=== PATIENT | female | born 1940 | race Caucasian/White ===

== ENCOUNTER 2024-05-14 11:39 | Day surgery (SDC) | payer MEDICARE, OTHER, SELFPAY ==
[2024-05-14] VITALS (7 sets, daily range): BP systolic 108–144; BP diastolic 60–67; PULSE 69–79; RESP 16–18; TEMP 35.8–36.4; O2SAT 95–99; BMI 32.8
--- NOTE | 2024-05-14 13:10 | HP.PCM_ITS ---
History and Physical Date of Admission: 05/14/24 FERMIN SILVA, is a 84 F who presents to the office today for establishment with [facility]. She is here today for evaluation of dysphagia to solid foods. This has been going on for a year now. Her tells me she will have food get stuck and she will have to take a break from eating until it passes. She is unsure if she has had an EGD before. She denies abdominal pain, heartburn, diarrhea, constipation or melena. ROS Const Constitutional: Positive for frequent falls; No fatigue, fever(s) or weight change ENT ENT: Positive for difficulty swallowing Gastro GI: Positive for difficulty swallowing; No abdominal pain, belching, bloating, change in bowel habits, change in stool character, coffee ground emesis, constipation, cramping, diarrhea, heartburn, feeling full early, excessive flatus, incontinent of stools, Vomiting blood/hematemesis, Blood in stool, loose stools, Black,tarry stools, nausea/dyspepsia, pain with swallowing, vomiting or other Musc Musculoskeletal: Positive for Arthritis; No joint pain Skin Skin: No yellowing of the eye or itchy eyes Neuro Neurology: Positive for frequent falls Psych Psychiatric: No anxiety and No depression Endo Endocrine: No fatigue or weight change Aller/Imm Allergy/Immunologic: No itchy eyes Jesus/Lymp Hematologic/Lymphatic: No easy bleeding or easy bruising Exam Const General: cooperative and comfortable Nutritional Appearance: average body habitus and well nourished [facility] Head: normal to inspection Ears: hearing grossly normal bilaterally Nose: external nose normal Face and sinus: normal facial exam Eyes General: appearance normal, both eyes and all related structures Neck Neck: normal visual inspection Chest Chest palpation & inspection: normal inspection of the chest Resp Effort & Inspection: normal respiratory effort Cardio Palpation: normal PMI Rate: regular rate Rhythm: regular rhythm GI Inspection: normal to inspection Auscultation: normal bowel sounds Percussion: normal to percussion Palpation: no hepatosplenomegaly Skin General: no rashes or lesions noted Neuro General: patient alert Extrem General: normal to inspection Psych Affect: normal affect Assessment and Plan Assessment and Plan (1) Dysphagia: Status: Inactive Plan: Pt is an 84 yo female here today for evaluation of dysphagia. She has had dysphagia to solid foods for about 1 year now. Her is with her today and answers most questions for her. She has episodes of food getting stuck in her esophagus and will have to wait until its passed to continue eating. She is unsure if she has had an EGD before but is agreeable to having one now. She denies all other GI symptoms. Differential diagnosis includes GERD, motility problem, stenosis or neurologic problem. -EGD with possible dilation -f/u in 6 months I have examined the patient and the H&P has been reviewed. There are no clinical changes since date of exam.
--- NOTE | 2024-05-14 13:21 | PCM.PRE.AN2 ---
ASA Classification* ASA Classification ASA Classification: 2 Assessment & Plan Anesthesia* Anesthesia Assessment Anesthesia Assessment: Discussed sedation and/or anesthesia options, risks, benefits, and alternatives with patient/parents/legal guardian/POA. Questions invited. The patient/parents/legal guardian/POA seems to understand and agrees to proceed with anesthesia plan. Reviewed the physical assessment, medical history, allergy history and patient home medications list prior to surgery/procedure/anesthetic and documented any changes. Performed airway and anesthesia risk assessments. Anesthesia Type Anesthesia Type: MAC History Source History Obtained from:: Patient and Chart Anesthesia Focused Assessment* Temperature: 97.5 F Pulse Rate: 79 Blood Pressure: 144/67 Respiratory Rate: 18 Pulse Ox: 99 Oxygen Delivery Method: Room Air Airway Assessment Mouth opens: >3 cm Mallampati Score: IV Teeth Condition: Intact and Caps/Crowns (Patient has several crowns. 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 When Was Last Pacemaker Check QUESTION #4 FULL TEXT: You/Your Family Experience fever (hyperthermia) with Anesthesia Last Oral Intake Last Oral intake: Last Oral Intake NPO since 23:30 05/14/24 12:33 Meds taken in AM with sips of water? Meds patient instructed to take am of surgery Any additional information?: Yes Meds taken in AM with sips of water?: Yes PONV PONV - keyboard instrument tuner: PONV - keyboard instrument tuner Female Yes 05/12/24 15:02 HX of Motion Sickness No 05/12/24 15:02 HX of N/V After Surgery No 05/12/24 15:02 Non-Smoker Yes 05/12/24 15:02 Duration of Surgery greater No 05/12/24 15:02 than 60 minutes Number of Risk Factors 2 05/12/24 15:02 PONV Score Moderate Risk 05/12/24 15:02 Height & Weight Height & Weight: Anesthesia: Height & Weight Height 5 ft 05/14/24 12:33 Weight: 76.2 kg 05/14/24 12:33 Body Mass Index (BMI) 32.8 05/14/24 12:33 Respiratory Assessment Respiratory Assessment - keyboard instrument tuner: Respiratory Tract Infection Hx - keyboard instrument tuner Hx Respiratory Tract Infection No 05/12/24 15:02 STOP Sleep Apnea STOP Sleep Apnea - keyboard instrument tuner: STOP Sleep Apnea - keyboard instrument tuner Hx Hypertension No 05/12/24 15:02 Hx Sleep Apnea No 05/12/24 15:02 CPAP BIPAP Do you snore loudly (louder No 05/12/24 15:02 than talking or can be heard Do you often feel tired/ No 05/12/24 15:02 fatigued/ sleepy during daytime? Has anyone observed you stop No 05/12/24 15:02 breathing during sleep? STOP Results Negative 05/12/24 15:02 QUESTION #5 FULL TEXT : Do you snore loudly (louder than talking or can be heard through closed doors)? Tobacco Use History Tobacco Use History - keyboard instrument tuner: Tobacco Use History - keyboard instrument tuner Tobacco Use Smoking Status Never smoker 05/12/24 15:02 Hx Tobacco Use No 05/12/24 15:02 Years Smoking Packs Smoked per Day Smoking Cessation Date was within the last 15 years Hx Smoking Cessation Date Hx Smoking Cessation Counseling Hematologic Medial History Hematologic Hx - keyboard instrument tuner: Hematologic Medical Hx - drencher Hx of Blood Transfusion No 05/12/24 15:02 Hx of Transfusion in last 3 No 05/12/24 15:02 Months Date of Last Transfusion (if within last 3 months) Ever experience any problems No 05/12/24 15:02 with transfusion(s)? Specify any problems Hx of Preganancy in last 3 No 05/12/24 15:02 Months Nurse Filling Out Transfusion VLEHMAN 05/12/24 15:02 & Questions: Date: 05/12/24 05/12/24 15:02 Time: 15:07 05/12/24 15:02 Patient unable to answer at this time (ie. confused, unrespo /Reproduction History /Reproductive History - keyboard instrument tuner: /Reproductive Hx- keyboard instrument tuner Hx Now Gestational Age (in weeks): EDC: Hx Hx Para Hx Section SAB PFSH Medical History Wears hearing aid Wears glasses Dementia Non-smoker Hypertension Home Medications ?Medication ?Instructions ?Recorded ?Last Taken ?Type amlodipine 5 mg tablet 5 mg PO QDAY 04/13/24 05/14/24 History memantine 10 mg tablet 10 mg PO BID 04/13/24 05/13/24 History rivastigmine 9.5 mg/24 hour 1 patch transdermal DAILY 05/12/24 05/14/24 History transdermal patch Allergy/AdvReac Type Severity Reaction Status Date / Time No Known Allergies Allergy Verified 05/14/24 12:32 Surgical History Hx of cholecystectomy Social History Smoking Status: Never smoker Review of Systems (Anesthesia) ROS Narrative System reviewed and no additional complaints, except as documented.
--- NOTE | 2024-05-14 13:30 | EGD_PTH ---
PATHOLOGY RESULTS PATIENT: FERMIN SILVA LOC: EN U#:[id number] AGE/SX: 84/F ROOM: RE05/14/[address]: Dr. Edmond Jones DO : 1940 BED: DIS: 05/14/2024 SPEC #: [id number] RECD: 05/14/24 17:13 STATUS: STEVIE REClover #: [id number] ROHINI: 05/14/24 13:[address]: Edmond Jones DEPT: SURGICAL PATHOLOGY RECD BY: Maribeth Oliveira ENTERED: 05/17/24 09:13 SP TYPE: EGD BIOPSY OT DR: Dr. Hollis Null DO Tissues: Esophagus, NOS Procedures: Special Stain Group I Surgery Specimen Level IV Alcian Blue/PAS (control) HEADER OPERATION: EGD with dilation of biopsy PRE-OP DIAGNOSIS: Dysphagia TISSUE SUBMITTED: Distal esophagus biopsy MICROSCOPIC DIAGNOSIS Distal esophagus, biopsy: Fragments of gastroesophageal mucosa with chronic inflammation. Intestinal metaplasia (goblet cell metaplasia) not identified. See comment. 05/18/2024 COMMENT Alcian blue/PAS stain with matched control is used in the evaluation of the specimen. MICROSCOPIC DESCRIPTION Slides are reviewed. GROSS DESCRIPTION Received in fixative is one container labeled with the patient's name and designated Distal esophagus biopsy. The specimen consists of multiple irregular fragments of light medina soft tissue that in aggregate measure 1.0 x 0.3 x 0.1 cm. The specimen is totally submitted in one cassette. 05/17/2024 TC:3 CPT:97198,25783
--- NOTE | 2024-05-14 13:32 | PCM.HP.BLA ---
History and Physical Date of Admission: 05/14/24 FERMIN SILVA, is a 84 F who presents to the office today for establishment with [facility]. She is here today for evaluation of dysphagia to solid foods. This has been going on for a year now. Her tells me she will have food get stuck and she will have to take a break from eating until it passes. She is unsure if she has had an EGD before. She denies abdominal pain, heartburn, diarrhea, constipation or melena. ROS Const Constitutional: Positive for frequent falls; No fatigue, fever(s) or weight change ENT ENT: Positive for difficulty swallowing Gastro GI: Positive for difficulty swallowing; No abdominal pain, belching, bloating, change in bowel habits, change in stool character, coffee ground emesis, constipation, cramping, diarrhea, heartburn, feeling full early, excessive flatus, incontinent of stools, Vomiting blood/hematemesis, Blood in stool, loose stools, Black,tarry stools, nausea/dyspepsia, pain with swallowing, vomiting or other Musc Musculoskeletal: Positive for Arthritis; No joint pain Skin Skin: No yellowing of the eye or itchy eyes Neuro Neurology: Positive for frequent falls Psych Psychiatric: No anxiety and No depression Endo Endocrine: No fatigue or weight change Aller/Imm Allergy/Immunologic: No itchy eyes Jesus/Lymp Hematologic/Lymphatic: No easy bleeding or easy bruising Exam Const General: cooperative and comfortable Nutritional Appearance: average body habitus and well nourished [facility] Head: normal to inspection Ears: hearing grossly normal bilaterally Nose: external nose normal Face and sinus: normal facial exam Eyes General: appearance normal, both eyes and all related structures Neck Neck: normal visual inspection Chest Chest palpation & inspection: normal inspection of the chest Resp Effort & Inspection: normal respiratory effort Cardio Palpation: normal PMI Rate: regular rate Rhythm: regular rhythm GI Inspection: normal to inspection Auscultation: normal bowel sounds Percussion: normal to percussion Palpation: no hepatosplenomegaly Skin General: no rashes or lesions noted Neuro General: patient alert Extrem General: normal to inspection Psych Affect: normal affect Assessment and Plan Assessment and Plan (1) Dysphagia: Status: Inactive Plan: Pt is an 84 yo female here today for evaluation of dysphagia. She has had dysphagia to solid foods for about 1 year now. Her is with her today and answers most questions for her. She has episodes of food getting stuck in her esophagus and will have to wait until its passed to continue eating. She is unsure if she has had an EGD before but is agreeable to having one now. She denies all other GI symptoms. Differential diagnosis includes GERD, motility problem, stenosis or neurologic problem. -EGD with possible dilation -f/u in 6 months I have examined the patient and the H&P has been reviewed. There are no clinical changes since date of exam.
--- NOTE | 2024-05-14 13:58 | OP.CCLET_ITS ---
05/14/2024 Hollis Null [address] [place] [address] Re : Upper GI endoscopy procedure for Yamileth Perkins Dear Dr. Null This procedure was performed on Tuesday, May 14, 2024. My impressions and recommendations are as follows: Impressions : - Abnormal esophageal motility, consistent with esophageal spasm. Dilated. - Z-line irregular, 39 cm from the incisors. Biopsied. - Small hiatal hernia. - Normal duodenal bulb. Recommendations : - Discharge patient to home. - Full liquid diet today. - Continue present medications. - Await pathology results. My findings are described in the full procedure note, which is enclosed. If I can be of further assistance, please feel free to contact me at . Sincerely, Edmond Jones, 05/14/2024 1:58:14 PM This report has been signed electronically.
--- NOTE | 2024-05-14 13:58 | OP.EGD_ITS ---
Patient Name: Yamileth Perkins Procedure Date: 05/14/2024 1:35 PM Date of : 1940 Age: 84 Procedure: Upper GI endoscopy Indications: Dysphagia Providers: DO Jenna Jenkins MD: Hollis Null Medicines: Monitored Anesthesia Care Patient Profile: This is an 84 year old female. Refer to note in patient chart for documentation of history and physical. Patient has symptoms of dysphagia with both liquids and solids. Complications: No immediate complications. Procedure: Pre-Anesthesia Assessment: - Prior to the procedure, a History and Physical was performed, and patient medications and allergies were reviewed. The patient is competent. The risks and benefits of the procedure and the sedation options and risks were discussed with the patient. All questions were answered and informed consent was obtained. Patient identification and proposed procedure were verified by the physician in the pre-procedure area. Mental Status Examination: alert and oriented. Airway Examination: normal oropharyngeal airway and neck mobility. Respiratory Examination: clear to auscultation. CV Examination: normal. Prophylactic Antibiotics: The patient does not require prophylactic antibiotics. Prior Anticoagulants: The patient has taken no anticoagulant or antiplatelet agents except for NSAID medication. ASA Grade Assessment: II - A patient with mild systemic disease. After reviewing the risks and benefits, the patient was deemed in satisfactory condition to undergo the procedure. The anesthesia plan was to use monitored anesthesia care (MAC). Immediately prior to administration of medications, the patient was re-assessed for adequacy to receive sedatives. The heart rate, respiratory rate, oxygen saturations, blood pressure, adequacy of pulmonary ventilation, and response to care were monitored throughout the procedure. The physical status of the patient was re-assessed after the procedure. After obtaining informed consent, the endoscope was passed under direct vision. Throughout the procedure, the patient's blood pressure, pulse, and oxygen saturations were monitored continuously. The Endoscope was introduced through the mouth, and advanced to the second part of duodenum. The upper GI endoscopy was accomplished without difficulty. The patient tolerated the procedure well. Scope In: 1:46:56 PM Scope Out: 1:53:13 PM Total Procedure Duration Time 0 hours 6 minutes 17 seconds Findings: Abnormal motility was noted in the esophagus. The cricopharyngeus was abnormal. There is spasticity of the esophageal body. The distal esophagus/lower esophageal sphincter is spastic, but gives up passage to the endoscope. Tertiary peristaltic waves are noted. A guidewire was placed and the scope was withdrawn. Dilation was performed with a Savary dilator with no resistance at 60 Fr. The dilation site was examined and showed moderate mucosal disruption. The Z-line was irregular and was found 39 cm from the incisors. Biopsies were taken with a cold forceps for histology. Verification of patient identification for the specimen was done. Estimated blood loss was minimal. A small hiatal hernia was present. No other significant abnormalities were identified in a careful examination of the stomach. The duodenal bulb was normal. Impression: - Abnormal esophageal motility, consistent with esophageal spasm. Dilated. - Z-line irregular, 39 cm from the incisors. Biopsied. - Small hiatal hernia. - Normal duodenal bulb. Recommendation: - Discharge patient to home. - Full liquid diet today. - Continue present medications. - Await pathology results. Procedure Code(s): --- Professional --- 55066, Esophagogastroduodenoscopy, flexible, transoral; with insertion of guide wire followed by passage of dilator(s) through esophagus over guide wire 08215, 59,51, Esophagogastroduodenoscopy, flexible, transoral; with biopsy, single or multiple CPT copyright 2021 [employer]. All rights reserved. The codes documented in this report are preliminary and upon forming yardage control operator review may be revised to meet current compliance requirements. Edmond Jones DO 05/14/2024 1:58:14 PM This report has been signed electronically. Number of Addenda: 0 Note Initiated On: 05/14/2024 1:35 PM
--- NOTE | 2024-05-14 14:03 | PCM.POST.ANE ---
Anesthesia: Postop Eval I Current Vital Signs Temperature: 97.2 F Pulse Rate: 76 Blood Pressure: 122/64 Respiratory Rate: 16 Pulse Ox: 97 Oxygen Delivery Method: Room Air Assessment Airway patent: Yes Spontaneous unlabored respirations: Yes Mental status: Awake and Calm nausea: No Vomiting: No Anesthesia Complication: No Fluid Hydration Crystalloid volume administer (ml): 30 Total IV fluid infused: 30 Progress Note Anesthesia document: Postop Eval 1 completed: Yes
--- NOTE | 2024-05-14 15:52 | PCM.POSTANE2 ---
Anesthesia Postop Eval I Sum Postop Eval Completion status Anesthesia document: Postop Eval 1 completed: Yes Anesthesia Postop Eval I Summary Anesthesia Postop Eval I Summary: Anesthesia Postop Eval I: Assessment Summary Airway patent Yes 05/14/24 14:04 [email or web address] Spontaneous unlabored Yes 05/14/24 14:04 [email or web address] respirations Mental status Awake,Calm 05/14/24 14:04 [email or web address] nausea No 05/14/24 14:04 [email or web address] Vomiting No 05/14/24 14:04 [email or web address] Anesthesia Postop Eval I: Fluid Summary Crystalloid volume administer 30 05/14/24 14:04 [email or web address] (ml) Colloids volume administered ( ml) Blood Product volume administered (ml) Total IV fluid infused 30 05/14/24 14:04 [email or web address] Anesthesia Postop Eval I: Summary Notes Anesthesia Complication No 05/14/24 14:04 [email or web address] Anesthesia Complication Comment: Post-operative progress note Anesthesia: Postop Eval II Evaluation Mental status: Awake and Calm Pain Level: 0 nausea: No Vomiting: No Complications Anesthesia Complication: No
== END 2024-05-14 15:00 | disposition home or self-care (01) ==
LOC: EN 11:40 → AC 11:43
PROVIDERS: PCP Preventive Medicine Occupational Medicine; Referring Provider Preventive Medicine Occupational Medicine; Visit Provider Internal Medicine Gastroenterology
PROC: 0DJ08ZZ Inspection of Upper Intestinal Tract, Via Natural or Artificial Opening Endoscopic (ICD-10-PCS; CPT 43235; principal; 2024-05-14 13:25)
DX: R13.10 Dysphagia, unspecified (principal); K44.9 Diaphragmatic hernia without obstruction or gangrene; K22.89 Other specified disease of esophagus
CPT/HCPCS: 43248; 43239; 88305; 88312; A4216; C1769; J2405

== ENCOUNTER 2025-04-29 12:44 | Day surgery (SDC) | payer MEDICARE, OTHER, SELFPAY ==
[2025-04-29] VITALS (8 sets, daily range): BP systolic 115–131; BP diastolic 61–77; PULSE 63–84; RESP 12–16; TEMP 36.2–36.4; O2SAT 94–100; BMI 33.0
[2025-04-29] MEDS: Lactated Ringers 1,000 ML 15 ML IV (13:26)
--- NOTE | 2025-04-29 13:56 | PCM.PRE.AN2 ---
ASA Classification* ASA Classification ASA Classification: 2 Assessment & Plan Anesthesia* Anesthesia Assessment Anesthesia Assessment: Discussed sedation and/or anesthesia options, risks, benefits, and alternatives with patient/parents/legal guardian/POA. Questions invited. The patient/parents/legal guardian/POA seems to understand and agrees to proceed with anesthesia plan. Reviewed the physical assessment, medical history, allergy history and patient home medications list prior to surgery/procedure/anesthetic and documented any changes. Performed airway and anesthesia risk assessments. Anesthesia Type Anesthesia Type: MAC History Source History Obtained from:: Patient and Chart Anesthesia Focused Assessment* Temperature: 97.5 F Pulse Rate: 84 Blood Pressure: 126/77 Respiratory Rate: 16 Pulse Ox: 100 Oxygen Delivery Method: Room Air Airway Assessment Mouth opens: >3 cm Mallampati Score: IV Teeth Condition: Intact and Caps/Crowns Neck Range of motion (ROM): Full ROM Labs Anesthesia Preop lab: CBC CHEMISTRY COAG Pre-Assessment Diagnosis/Proposed Procedure Planned Operative Procedure(s): EGD Anesthesia History Anesthesia History - adolescent psychiatrist: Anesthesia History - adolescent psychiatrist Hx Hospitalization No 04/26/25 13:08 Any Problems With Anesthesia No 04/26/25 13:08 Cholinesterase deficiency No 04/26/25 13:08 You/Your Family Experience No 04/26/25 13:08 fever (hyperthermia) with Relationship Recent Exposure to Contagious No 04/29/25 13:22 Disease Does patient have nerve No 04/26/25 13:08 stimulator Patient instructed to have device shut off --Does patient have Pacemaker No 04/29/25 13:22 or ICD? When Was Last Pacemaker Check QUESTION #4 FULL TEXT: You/Your Family Experience fever (hyperthermia) with Anesthesia Last Oral Intake Last Oral intake: Last Oral Intake NPO since 20:00 04/29/25 13:22 Meds taken in AM with sips of water? Meds patient instructed to take am of surgery PONV PONV - adolescent psychiatrist: PONV - adolescent psychiatrist Female Yes 04/26/25 13:08 HX of Motion Sickness No 04/26/25 13:08 HX of N/V After Surgery No 04/26/25 13:08 Non-Smoker Yes 04/26/25 13:08 Duration of Surgery greater No 04/26/25 13:08 than 60 minutes Number of Risk Factors 2 04/26/25 13:08 PONV Score Moderate Risk 04/26/25 13:08 Height & Weight Height & Weight: Anesthesia: Height & Weight Height 5 ft 04/29/25 13:22 Weight: 76.7 kg 04/29/25 13:22 Body Mass Index (BMI) 33.0 04/29/25 13:22 Respiratory Assessment Respiratory Assessment - adolescent psychiatrist: Respiratory Tract Infection Hx - adolescent psychiatrist Hx Respiratory Tract Infection No 04/26/25 13:08 STOP Sleep Apnea STOP Sleep Apnea - adolescent psychiatrist: STOP Sleep Apnea - adolescent psychiatrist Hx Hypertension Yes 04/26/25 13:08 Hx Sleep Apnea No 04/26/25 13:08 CPAP BIPAP Do you snore loudly (louder No 04/26/25 13:08 than talking or can be heard Do you often feel tired/ No 04/26/25 13:08 fatigued/ sleepy during daytime? Has anyone observed you stop No 04/26/25 13:08 breathing during sleep? STOP Results Negative 04/26/25 13:08 QUESTION #5 FULL TEXT : Do you snore loudly (louder than talking or can be heard through closed doors)? 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 Specify any problems Hx of Preganancy in last 3 No 04/26/25 13:08 Months Nurse Filling Out Transfusion JZOLLINGE 04/26/25 13:08 & Questions: Date: 04/26/25 04/26/25 13:08 Time: 13:10 04/26/25 13:08 Patient unable to answer at this time (ie. confused, unrespo /Reproduction History /Reproductive History - adolescent psychiatrist: /Reproductive Hx- adolescent psychiatrist Hx Now No 04/26/25 13:08 Gestational Age (in weeks): EDC: Hx Hx Para Hx Section SAB No 04/26/25 13:08 Active Medications Active Medications: Current Medications Generic Name Dose Route Start Last Admin Trade Name Freq PRN Reason Stop Dose Admin Lactated Ringer's 1,000 mls @ 15 mls/hr 04/29/25 13:00 04/29/25 13:26 IV 15 mls/hr .Q48H BUFFY Administration PFSH Medical History Difficulty swallowing History of hiatal hernia Asthma Wears hearing aid Wears glasses Dementia Non-smoker Hypertension Home Medications ?Medication ?Instructions ?Recorded ?Last Taken ?Type amlodipine 5 mg tablet 5 mg PO QDAY 04/13/24 05/14/24 History memantine 10 mg tablet 10 mg PO BID 04/13/24 05/13/24 History amitriptyline 10 mg tablet 10 mg PO QDAY #60 tabs 02/02/25 Unknown Rx melatonin 10 mg capsule 10 mg PO QHS 04/26/25 Unknown History rivastigmine 13.3 mg/24 hour 1 patch transdermal DAILY 04/26/25 Unknown History transdermal patch Allergy/AdvReac Type Severity Reaction Status Date / Time No Known Allergies Allergy Verified 04/29/25 13:22 Surgical History Hx of cholecystectomy Social History Smoking Status: Never smoker Review of Systems (Anesthesia) ROS Narrative System reviewed and no additional complaints, except as documented.
--- NOTE | 2025-04-29 14:05 | PCM.HP.STD ---
HPI - General General Date of Admission: 04/29/25 Date of Service: 04/29/25 Chief Complaint: Dysphagia HPI Narrative FERMIN SILVA, is a 85 F who presents [ Chief Complaint: Dysphagia BGI established 04.13.25 for dysphagia to solid foods x1 year. Having episodes of food getting stuck in her esophagus. Last EGD in [address] Childers showing dysphagia with multiple tertiary contraction with recommendation for manometry to exclude achalasia vs jackhammer esophagus. EGD 05.14.24; - Abnormal esophageal motility, consistent with esophageal spasm. Dilated. - Z-line irregular, 39 cm from the incisors. Biopsied. - Small hiatal hernia. - Normal duodenal bulb. Normal biopsies OV 3..25 Pt continues to have issues with swallowing. This is not during every meal. She feels the food stuck in her esophagus when this happens. She does not regurgitate it and it does eventually pass. She is unsure if the dilation helped her symptoms. She has some mild constipation but is going daily. OV .05.14 patient having worsening issues with her swallowing despite being on amitriptyline 10 mg. It is not with every meal and she does not have to regurgitate it. Patient's endorsing that EGD with dilation did help with her symptoms. [facility] Medical History (Updated 04/29/25 @ 14:[address] Pruitt Friend, ) Difficulty swallowing History of hiatal hernia Asthma Wears hearing aid Wears glasses Dementia Non-smoker Hypertension Home Medications ?Medication ?Instructions ?Recorded ?Last Taken ?Type amlodipine 5 mg tablet 5 mg PO QDAY 04/13/24 05/14/24 History memantine 10 mg tablet 10 mg PO BID 04/13/24 05/13/24 History amitriptyline 10 mg tablet 10 mg PO QDAY #60 tabs 02/02/25 Unknown Rx melatonin 10 mg capsule 10 mg PO QHS 04/26/25 Unknown History rivastigmine 13.3 mg/24 hour 1 patch transdermal DAILY 04/26/25 Unknown History transdermal patch Allergy/AdvReac Type Severity Reaction Status Date / Time No Known Allergies Allergy Verified 04/29/25 13:22 Surgical History Hx of cholecystectomy Social History Smoking Status: Never smoker ROS Constitutional Constitutional: Denies fatigue, fever(s), poor appetite, weight gain or weight loss Gastrointestinal Gastrointestinal: Denies belching, bloating, change in bowel habits, change in stool character, chewing difficulty, coffee ground emesis, constipation, cramping, diarrhea, dyspepsia, dysphagia, early satiety, excessive flatus, fecal incontinence, heartburn, hematemesis, hematochezia, hemorrhoids, loose stools, melena, nausea, odynophagia, rectal bleeding, tenesmus, vomiting or weight changes Vital Signs Vital Signs Vital Signs: 04/29/25 13:22 04/29/25 13:22 04/29/25 14:01 Temperature 97.5 F L 97.5 F L Temperature Source Temporal Pulse Rate 84 84 Respiratory Rate 16 16 Respiratory Pattern Normal Blood Pressure 126/77 H 126/77 H Blood Pressure Mean 93 Blood Pressure Source Monitor Blood Pressure Position Semi-Fowlers Blood Pressure Location Right Arm Pulse Ox 100 100 Oxygen Delivery Method Room Air Room Air Weight Weight: 169 lb 1.513 oz Body Mass Index (BMI) 33.0 Physical Exam Const alert, oriented x3, no apparent distress and healthy appearing General Appearance: cooperative GI normal to inspection, nondistended, normoactive bowel sounds, soft to palpation, non-tender and non-distended Percussion: normal to percussion Rectal Exam: deferred Assessment & Plan Assessment/Plan (1) Difficulty swallowing: PLAN: ROS Const Constitutional: No fatigue, fever(s) or weight change ENT ENT: Positive for difficulty swallowing Gastro GI: Positive for difficulty swallowing; No abdominal pain, belching, bloating, change in bowel habits, change in stool character, coffee ground emesis, constipation, cramping, diarrhea, heartburn, feeling full early, excessive flatus, incontinent of stools, Vomiting blood/hematemesis, Blood in stool, loose stools, Black,tarry stools, nausea/dyspepsia, pain with swallowing, vomiting or other Musc Musculoskeletal: No joint pain Skin Skin: No yellowing of the eye or itchy eyes Psych Psychiatric: No anxiety and No depression Endo Endocrine: No fatigue or weight change Aller/Imm Allergy/Immunologic: No itchy eyes Jesus/Lymp Hematologic/Lymphatic: No easy bleeding or easy bruising Exam Const General: cooperative, healthy appearing and comfortable Nutritional Appearance: average body habitus Orientation: alert HENMT Head: normal to inspection Eyes General: appearance normal, both eyes and all related structures Neck Neck: normal visual inspection Chest Chest palpation & inspection: normal inspection of the chest Resp Effort & Inspection: normal respiratory effort Cardio Rate: regular rate Rhythm: regular rhythm GI Inspection: normal to inspection Auscultation: normal bowel sounds Palpation: soft and nontender Assessment and Plan Assessment and Plan (1) Constipation: Status: Acute Plan: Leighann is an 85-year-old female patient here today for follow-up regarding her dysphagia. Patient endorsing worsening difficulty swallowing over the past few months. Patient has a history of dementia and is unable to answer all questions therefore her provides the history. Patient's believes that she did have relief with her last EGD with dilation. Symptoms have been refractory to amitriptyline 10 mg daily. She will undergo repeat EGD with dilation and consider further treatment pending response to dilation. She denies having any constipation at this time. - EGD with dilation - Continue amitriptyline 10 mg daily - Follow-up after EGD (2) Dysphagia: Status: Inactive]
--- NOTE | 2025-04-29 14:30 | EGD_PTH ---
PATIENT: FERMIN SILVA LOC: EN U#:[id number] AGE/SX: 85/F ROOM: RE04/29/[address]: Dr. Edmond Jones DO : 1940 BED: DIS: 04/29/2025 SPEC #: [id number] RECD: 04/29/25 16:25 STATUS: STEVIE REClover #: [id number] ROHINI: 04/29/25 14:[address]: Edmond Jones DEPT: SURGICAL PATHOLOGY RECD BY: Miguel Hays ENTERED: 05/02/25 11:09 SP TYPE: EGD BIOPSY HI DR: Dr. Hollis Null DO Tissues: A - Esophagus, NOS Procedures: Surgery Specimen Level IV HEADER OPERATION: EGD with biopsy, dilation PRE-OP DIAGNOSIS: Dysphagia TISSUE SUBMITTED: A- Random esophagus biopsy MICROSCOPIC DIAGNOSIS A. Esophagus, random, biopsy: * Benign squamous mucosa negative for eosinophils. MICROSCOPIC DESCRIPTION Slides are reviewed. GROSS DESCRIPTION A. Received in fixative is one container labeled with the patient's name and designated Random esophagus biopsy. The specimen consists of multiple irregular fragments of med[place] tissue that in aggregate measure 1 x 0.7 x 0.1 cm. The specimen is totally submitted in one cassette. [place] 05/02/2025 CPT:84025
--- NOTE | 2025-04-29 15:08 | OP.EGD_ITS ---
Patient Name: Yamileth Perkins Procedure Date: 04/29/2025 2:42 PM Date of : 1940 Age: 85 Procedure: Upper GI endoscopy Indications: Dysphagia Providers: Edmond Jones DO Referring MD: Edmond Jones DO Medicines: Monitored Anesthesia Care Patient Profile: This is an 85 year old female. Refer to note in patient chart for documentation of history and physical. Patient has symptoms. Patient has symptoms of dysphagia with both liquids and solids. Complications: No immediate complications. Procedure: Pre-Anesthesia Assessment: - Prior to the procedure, a History and Physical was performed, and patient medications and allergies were reviewed. The patient is competent. The risks and benefits of the procedure and the sedation options and risks were discussed with the patient. All questions were answered and informed consent was obtained. Patient identification and proposed procedure were verified by the physician in the pre-procedure area. Mental Status Examination: alert and oriented. Airway Examination: normal oropharyngeal airway and neck mobility. Respiratory Examination: clear to auscultation. CV Examination: normal. Prophylactic Antibiotics: The patient does not require prophylactic antibiotics. Prior Anticoagulants: The patient has taken no anticoagulant or antiplatelet agents except for NSAID medication. ASA Grade Assessment: II - A patient with mild systemic disease. After reviewing the risks and benefits, the patient was deemed in satisfactory condition to undergo the procedure. The anesthesia plan was to use monitored anesthesia care (MAC). Immediately prior to administration of medications, the patient was re-assessed for adequacy to receive sedatives. The heart rate, respiratory rate, oxygen saturations, blood pressure, adequacy of pulmonary ventilation, and response to care were monitored throughout the procedure. The physical status of the patient was re-assessed after the procedure. After obtaining informed consent, the endoscope was passed under direct vision. Throughout the procedure, the patient's blood pressure, pulse, and oxygen saturations were monitored continuously. The Endoscope was introduced through the mouth, and advanced to the second part of duodenum. The upper GI endoscopy was accomplished without difficulty. The patient tolerated the procedure well. Scope In: 2:52:12 PM Scope Out: 2:58:26 PM Total Procedure Duration Time 0 hours 6 minutes 14 seconds Findings: A moderate Schatzki ring was found in the lower third of the esophagus. Biopsies were taken with a cold forceps for histology. Verification of patient identification for the specimen was done. Estimated blood loss was minimal. Abnormal motility was noted in the esophagus. The cricopharyngeus was abnormal. There are extra peristaltic waves in the esophageal body. The distal esophagus/lower esophageal sphincter is spastic, but gives up passage to the endoscope. Tertiary peristaltic waves are noted. A guidewire was placed and the scope was withdrawn. Dilation was performed with a Savary dilator with no resistance at 54 Fr. The dilation site was examined and showed moderate mucosal disruption. Estimated blood loss: none. No gross lesions were noted in the entire examined stomach. No gross lesions were noted in the entire examined duodenum. A small hiatal hernia was present. Impression: - Moderate Schatzki ring. Biopsied. - Abnormal esophageal motility, suspicious for presbyesophagus. Dilated. - No gross lesions in the entire stomach. - No gross lesions in the entire examined duodenum. Recommendation: - Discharge patient to home. - Resume previous diet. - Continue present medications. - Await pathology results. Procedure Code(s): --- Professional --- 68906, Esophagogastroduodenoscopy, flexible, transoral; with insertion of guide wire followed by passage of dilator(s) through esophagus over guide wire 04365, 59,51, Esophagogastroduodenoscopy, flexible, transoral; with biopsy, single or multiple CPT copyright 2021 [employer]. All rights reserved. The codes documented in this report are preliminary and upon regulator mechanic review may be revised to meet current compliance requirements. Edmond Jones DO 04/29/2025 3:08:22 PM This report has been signed electronically. Number of Addenda: 0 Note Initiated On: 04/29/2025 2:42 PM
--- NOTE | 2025-04-29 15:08 | OP.PROVAT_ITS ---
04/29/2025 Hollis Null [address] [place] [address] Re : Upper GI endoscopy procedure for Yamileth Perkins Dear Dr. Null This procedure was performed on Tuesday, April 29, 2025. My impressions and recommendations are as follows: Impressions : - Moderate Schatzki ring. Biopsied. - Abnormal esophageal motility, suspicious for presbyesophagus. Dilated. - No gross lesions in the entire stomach. - No gross lesions in the entire examined duodenum. Recommendations : - Discharge patient to home. - Resume previous diet. - Continue present medications. - Await pathology results. My findings are described in the full procedure note, which is enclosed. If I can be of further assistance, please feel free to contact me at . Sincerely, Edmond Jones, 04/29/2025 3:08:22 PM This report has been signed electronically.
--- NOTE | 2025-04-29 15:12 | PCM.POST.ANE ---
Anesthesia: Postop Eval I Current Vital Signs Temperature: 97.5 F Pulse Rate: 78 Blood Pressure: 131/62 Respiratory Rate: 16 Pulse Ox: 95 Oxygen Delivery Method: Room Air Assessment Airway patent: Yes Spontaneous unlabored respirations: Yes Mental status: Awake and Calm nausea: No Vomiting: No Anesthesia Complication: No Fluid Hydration Crystalloid volume administer (ml): 400 Total IV fluid infused: 400 Progress Note Anesthesia document: Postop Eval 1 completed: Yes
--- NOTE | 2025-04-29 16:35 | POSTOPAN2_ITS ---
Anesthesia Postop Eval I Sum Postop Eval Completion status Anesthesia document: Postop Eval 1 completed: Yes Anesthesia Postop Eval I Summary Anesthesia Postop Eval I Summary: Anesthesia Postop Eval I: Assessment Summary Airway patent Yes 04/29/25 15:13 [email or web address] [email or web address] Spontaneous unlabored Yes 04/29/25 15:13 MILIEU [email or web address].[email or web address] respirations Mental status Awake,Calm 04/29/25 15:13 [email or web address] [email or web address] nausea No 04/29/25 15:13 [email or web address] [email or web address] Vomiting No 04/29/25 15:13 [email or web address] [email or web address] Anesthesia Postop Eval I: Fluid Summary Crystalloid volume administer 400 04/29/25 15:13 [email or web address] [email or web address] (ml) Colloids volume administered ( ml) Blood Product volume administered (ml) Total IV fluid infused 400 04/29/25 15:13 MILIEU [email or web address] Anesthesia Postop Eval I: Summary Notes Anesthesia Complication No 04/29/25 15:13 MILIEU [email or web address] Anesthesia Complication Comment: Post-operative progress note Anesthesia: Postop Eval II Evaluation Mental status: Awake and Calm Pain Level: 0 nausea: No Vomiting: No Complications Anesthesia Complication: No
--- NOTE | 2025-04-29 16:35 | PCM.POSTANE2 ---
Anesthesia Postop Eval I Sum Postop Eval Completion status Anesthesia document: Postop Eval 1 completed: Yes Anesthesia Postop Eval I Summary Anesthesia Postop Eval I Summary: Anesthesia Postop Eval I: Assessment Summary Airway patent Yes 04/29/25 15:13 [email or web address] Spontaneous unlabored Yes 04/29/25 15:13 [email or web address] respirations Mental status Awake,Calm 04/29/25 15:13 [email or web address] nausea No 04/29/25 15:13 [email or web address] Vomiting No 04/29/25 15:13 [email or web address] Anesthesia Postop Eval I: Fluid Summary Crystalloid volume administer 400 04/29/25 15:13 [email or web address] (ml) Colloids volume administered ( ml) Blood Product volume administered (ml) Total IV fluid infused 400 04/29/25 15:13 [email or web address] Anesthesia Postop Eval I: Summary Notes Anesthesia Complication No 04/29/25 15:13 [email or web address] Anesthesia Complication Comment: Post-operative progress note Anesthesia: Postop Eval II Evaluation Mental status: Awake and Calm Pain Level: 0 nausea: No Vomiting: No Complications Anesthesia Complication: No
== END 2025-04-29 16:10 | disposition home or self-care (01) ==
LOC: EN 12:46 → AC 12:50
PROVIDERS: PCP Preventive Medicine Occupational Medicine; Referring Provider Internal Medicine Gastroenterology; Visit Provider Internal Medicine Gastroenterology
PROC: 0DJ08ZZ Inspection of Upper Intestinal Tract, Via Natural or Artificial Opening Endoscopic (ICD-10-PCS; CPT 43235; principal; 2025-04-29 14:25)
DX: K22.2 Esophageal obstruction (principal); F03.90 Unspecified dementia, unspecified severity, without behavioral disturbance, psychotic disturbance, mood disturbance, and anxiety; K59.00 Constipation, unspecified; K44.9 Diaphragmatic hernia without obstruction or gangrene; I10 Essential (primary) hypertension; J45.909 Unspecified asthma, uncomplicated; Z79.899 Other long term (current) drug therapy
CPT/HCPCS: 43248; 43239; 88305; C1769; J2405

== ENCOUNTER → 2025-06-21 | Outpatient (CLI) | payer MEDICARE, OTHER, SELFPAY ==
--- NOTE | 2025-06-21 09:47 | SP.MBSS_ITS ---
Modified Barium Swallow Patient Information Study Date: 06/21/25 Study Time: 09:00 Diagnosis: Dysphagia R13.10 Referring Physician: Lucia Kunz Reason for Referral: Pt had recent follow up w/ [facility] for management of dysphagia. Per GI progress note, 05/13/2025, PMH is significant for dysphagia w/ solid foods since the fall of 2023. EGD in [address] Childers showing dysphagia with multiple tertiary contraction with recommendation for manometry to exclude achalasia vs. jackhammer esophagus. EGD 05/14/24 w/ Dr. Jones showing abnormal esophageal motility, consistent with esophageal spasm (dilated), Z-line irregular, Small hiatal hernia, Normal biopsies. EGD 04/29/2025 revealing moderate Schatzki ring (biopsied), abnormal esophageal motility suspicious for presbyesophagus (dilated). During follow up visit w/ RADHA Gardner, the patient reported continued difficulty swallowing despite dilation. She referred the patient for this MBSS to rule out oropharyngeal dysphagia. Per pt and , Chepe?s, report, she has difficulty swallowing solids ~1- 2X/week characterized by sensation of pharyngeal retention, but she denied odynophagia or regurgitation. One food that gives her particular difficulty is sandwiches. They only consume tender meats at home, as well. Medical History: Medical History Difficulty swallowing History of hiatal hernia Asthma Wears hearing aid Wears glasses Dementia Non-smoker Hypertension Surgical History Hx of cholecystectomy Current Diet Ordered: Regluar textures, Easy to chew meat / Thin liquids Dentition: Natural Teeth Mental Status: Impaired (Hx of Alzheimer's per ) Respiratory Status: Oxygenating on Room Air Penetration-Aspiration Scale Penetration-Aspiration Scale: OBJECTIVE ASSESSMENT OF SWALLOW FUNCTION (QUANTITATIVE ? PER TRIAL): PENETRATION / ASPIRATION SCALE (SMITH): 1 = does not enter airway 2 = enters airway/above vocal folds/ejected 3 = enters airway/above vocal folds/not ejected 4 = enters airway/contacts vocal folds/ejected 5 = enters airway/contacts vocal folds/not ejected 6 = enters airway/below vocal folds/ejected 7 = enters airway/below vocal folds/not ejected despite effort 8 = enters airway/below vocal folds/no effort VIDEOFLOROSCOPIC SCALE SCORE (SMITH): Grade I = aspiration of material that has penetrated into the laryngeal vestibule, intact cough reflex Grade II = aspiration < 10 % of the bolus, intact cough reflex Grade III = aspiration of < 10 % of the bolus, reduced cough reflex or aspiration of > 10 % of the bolus, intact cough reflex Grade IV = aspiration of > 10 % of the bolus, reduced cough reflex Penetration-Aspiration Scale Score Thin Liquid via teaspoon: Result: 1= does not enter airway Thin Liquid via teaspoon Trial 2: Result: 1= does not enter airway Thin Liquid via small single sip: cup: Result: 1= does not enter airway Thin Liquid via sequential sips: cup: Result: 1= does not enter airway Comment: Esophageal screen - Mild retention in the lower esophagus w/ min retrograde flow. [place] Thick Liquid via small single sip: cup: Result: 1= does not enter airway Pudding via teaspoon: Result: 1= does not enter airway Comment: Esophageal screen - Complete clearance. 1/2 Cookie: Result: 1= does not enter airway Comment: Esophageal screen - Moderate-severe retention of cookie in the lower esophagus w/ min retrograde flow. Tortuous lower esophagus. Thin Liquid via single sip: straw: Result: 1= does not enter airway Comment: Esophageal screen - First liquid wash resulted in retention w/ retrograde flow to the middle esophagus. Second liquid wash effectively cleared majority of barium from the lower esophagus w/ mild liquid barium remaining at the end of the esophageal screen. Oral Phase Labial Seal: No Labial Escape Tongue Control During Bolus Hold: Posterior escape of greater than half of bolus Bolus Preparation/Mastication: Slow prolonged chewing/mashing with complete recollection Bolus Transport/Lingual Motion: Repetitive/disorganized tongue motion Oral Residue: Residue collection on oral structures Pharyngeal Phase Initiation of Pharyngeal Swallow: Bolus head in pyriforms Soft Palate Elevation: Trace column of contrast/air between soft palate and pharyngeal wall Laryngeal Elevation: Comp. Superior move thyroid cart w/comp. apprx arytenoid cart-epig pet Anterior Hyoid Excursion: Partial anterior movement Epiglottic Movement: Complete inversion Laryngeal Vestibule Closure at Height of Swallow: Complete; no air/contrast in laryngeal vestibule Pharyngeal Stripping Wave: Present - complete Pharyngoesophageal Segment Opening: Complete distension and complete duration; no obstruction of flow Tongue Base Retraction: Narrow column of contrast between tongue base & post. pharyngeal wall Pharyngeal Residue: Collection of residue within or on pharyngeal structures Esophageal Phase Esophageal Clearance: Esophageal retention w/ retrograde flow below pharyngoesophageal seg. Diagnosis/Impression Diagnosis: Esophageal dysphagia R13.14 [facility] [place] Impressions: Oropharyngeal swallow function is grossly WNL as compared to same age peers. Piecemeal deglutition. Oral residues fully cleared w/ additional swallows as needed. Prolonged, but complete mastication. No laryngeal penetration or aspiration. Good pharyngeal clearance. The esophageal phase is primarily marked by... -Mild retention of liquid barium in the lower esophagus w/ min retrograde flow. -Moderate-severe retention of cookie in the lower esophagus w/ min retrograde flow. Tortuous lower esophagus. First liquid wash resulted in retention w/ retrograde flow to the middle esophagus. Second liquid wash effectively cleared majority of barium from the lower esophagus w/ mild liquid barium remaining at the end of the esophageal screen. Recommendations Diet: Easy to Chew Textures and Thin Liquids Comment: Consider having a variety of Easy to Chew and Puree textures at a meal rather than all Easy to Chew textures as the patient had better clearance of pudding through the LES as compared to cookie. STOP meal if increased s/s of reflux, sensation of retention, or regurgitation despite use of strategies listed below and resume meal at a later time. Compensatory Strategies: Small Bites, Small Sips, Slow Rate, Alternate bites/solids and sips/liquids (Two sips after bites of solid foods) and Sitting upright (During and 60min after a meal) Supervision: Distant Supervision ( to provide verbal reminders as needed) Recommend Repeat Modified Barium Swallow: TBD Need for Skilled Speech Therapy Services: No Recommended Referrals: GI Consult (Please continue to follow w/ GI for management of esophageal dysphagia) Education Completed: 1. Described result of evaluation., 2. Pt understands evaluation & agrees with goals and treatment plan. and 4. Family/caregivers understand evaluation & agree w/ goals & tx plan. Status Active ST Patient: Active Contact Information [facility] Speech Therapy:: Lizzy Francis M.A. [facility]-[employer] [employer] COORDINATOR Speech-Language Pathologist [facility] [address] [place] [address] [email or web address] [phone]
== END | disposition home or self-care (01) ==
LOC: RAD 08:58
PROVIDERS: PCP Preventive Medicine Occupational Medicine; Referring Provider Student in an Organized Health Care Education/Training Program; Visit Provider Student in an Organized Health Care Education/Training Program
DX: R13.10 Dysphagia, unspecified (principal)
CPT/HCPCS: 74230; 92611